=== PATIENT | female | born 1975 | race Caucasian/White ===

== ENCOUNTER 2018-03-16 14:35 | Emergency (ER) | payer OTHER, MEDICAID, SELFPAY ==
--- NOTE | 2018-03-16 14:43 | ED.SYNCOPE ---
HPI - Syncope <PHILLY Holden - Last Filed: 03/16/18 22:18> General Chief Complaint: Dizziness Stated Complaint: passed out twice Time Seen by Provider: 03/16/18 14:42 Source: patient Mode of arrival: ambulatory Limitations: no limitations History of Present Illness HPI narrative: 42-year-old female here for complaint of having a syncopal episode earlier today and pre syncopal episode earlier today as well. She states her eye this morning about 4 o'clock she had some lower abdominal pain bilaterally and she stated she went to the restroom to use the toilet. While she was sitting on the toilet she began to feel lightheaded she stood up and felt like she blacked out for a short. Approximately 15 sec. She states she hit the front side of her forehead. She reports that she also had a headache during that timeframe. She denies any chest pain or shortness of breath. No fevers no chills. She is currently awaiting surgery to fix a hernia repair that has mesh next month. She denies any vaginal discharge or bleeding. No urinary symptoms. Last bowel movement was yesterday and was unremarkable. Related Data Home Medications Medication Instructions Recorded Confirmed No Known Home Medications 03/16/18 03/16/18 Allergies Allergy/AdvReac Type Severity Reaction Status Date / Time chlorhexidine [CHLORHEXIDINE] Allergy Severe blisters Verified 03/16/18 14:51 Review of Systems <PHILLY Holden - Last Filed: 03/16/18 22:18> Constitutional Denies chills, Denies fatigue, Denies fever(s), Denies lethargy and Denies weakness Eyes Denies change in vision, Denies eye discharge, Denies irritation and Denies loss of vision ENT Ears, Nose, Mouth, and Throat: Denies change in voice, Denies neck pain and Denies sore throat Cardiovascular Reports syncope, Reports lightheadedness, Denies dyspnea and Denies dyspnea on exertion Respiratory Denies cough, Denies dyspnea, Denies dyspnea on exertion and Denies wheezing Gastrointestinal Gastrointestinal: Reports abdominal pain Genitourinary Denies hematuria, Denies flank pain, Denies urinary incontinence and Denies urinary urgency Musculoskeletal Denies neck pain Integumentary/Breasts Denies pruritus, Denies erythema, Denies rash and Denies wounds Neurologic Denies confusion, Reports syncope, Denies loss of vision and Denies weakness Psychiatric Denies anxiety, Denies confusion, Denies depression, Denies homicidal ideation and Denies suicidal ideation Endocrine Denies fatigue and Denies flushing Hematologic/Lymphatic Denies easy bruising Allergic/Immunologic Denies wheezing Exam <PHILLY Holden - Last Filed: 03/16/18 22:18> Initial Vital Signs Initial Vital Signs: Vital Signs Temperature 97.6 F 03/16/18 14:45 Pulse Rate 90 03/16/18 14:45 Respiratory Rate 16 03/16/18 14:45 Blood Pressure 126/92 H 03/16/18 14:45 Pulse Oximetry 97 03/16/18 14:45 Const General: cooperative and well developed Nutritional Appearance: well nourished Orientation: alert, awake, oriented x3 and not confused HENKS Head: normal to inspection, normocephalic, atraumatic, No Cai's sign, No contusion, No hematoma, No laceration, No palpable skull fracture, No raccoon eyes and No scalp lesion Nose: external nose normal Mouth: oral mucosae normal, oropharynx normal and moist mucous membranes Eyes Conjunctivae: conjunctivae normal Sclera: sclerae normal Pupils: PERRL EOM: EOM intact bilaterally Neck Neck: normal visual inspection, trachea midline, No lymphadenopathy, No midline deformity and No JVD Lymphatic: No lymphedema Chest Chest: normal inspection of the chest Resp Effort & Inspection: normal respiratory effort, able to speak in complete sentences, no respiratory distress and no use of accessory muscles Auscultation: clear to auscultation bilaterally, no rales, no rhonchi and no wheezes Cardio Rate: regular rate Rhythm: regular rhythm Heart Sounds: no click, no gallops, no murmurs and no rubs Pulses: normal peripheral pulses GI Inspection: non-distended Palpation: soft, no hepatosplenomegaly, No guarding, No mass, No pulsatile mass and tender (Tenderness to the umbilicus area) Auscultation: normal bowel sounds General: No CVA tenderness Neuro General: alert, oriented x3, gait normal and no focal motor deficits Speech: speech normal Extrem General: full ROM, no clubbing, cyanosis or edema, no pedal edema and no calf tenderness <Shree Oglesby DO - Last Filed: 03/17/18 07:29> Initial Vital Signs Initial Vital Signs: Vital Signs Temperature 97.6 F 03/16/18 14:45 Pulse Rate 90 03/16/18 14:45 Respiratory Rate 16 03/16/18 14:45 Blood Pressure 126/92 H 03/16/18 14:45 Pulse Oximetry 97 03/16/18 14:45 Course <PHILLY Holden - Last Filed: 03/16/18 22:18> Orders Ordered: Discontinued Medications Sodium Chloride (Normal Saline 0.9%) 1,000 mls @ 1,000 mls/hr IV BOLUS ONE Stop: 03/16/18 15:46 Last Infusion: 03/16/18 16:17 Dose: 0 mls/hr Admin: 03/16/18 14:55 Dose: 1,000 mls/hr Ketorolac Tromethamine (Toradol) 30 mg IV NOW ONE Stop: 03/16/18 19:37 Last Admin: 03/16/18 19:35 Dose: 30 mg Vital Signs - 8 hr 03/16/18 14:45 03/16/18 16:34 03/16/18 17:32 Temperature 97.6 F Pulse Rate 90 76 73 Respiratory Rate 16 14 16 Blood Pressure 126/92 H Blood Pressure [Left Arm] 111/81 H 132/86 H Pulse Oximetry 97 97 100 03/16/18 19:59 Temperature Pulse Rate 79 Respiratory Rate 15 Blood Pressure 128/89 H Blood Pressure [Left Arm] Pulse Oximetry 100 <Shree Oglesby DO - Last Filed: 03/17/18 07:29> Orders Ordered: Discontinued Medications Sodium Chloride (Normal Saline 0.9%) 1,000 mls @ 1,000 mls/hr IV BOLUS ONE Stop: 03/16/18 15:46 Last Infusion: 03/16/18 16:17 Dose: 0 mls/hr Admin: 03/16/18 14:55 Dose: 1,000 mls/hr Ketorolac Tromethamine (Toradol) 30 mg IV NOW ONE Stop: 03/16/18 19:37 Last Admin: 03/16/18 19:35 Dose: 30 mg Vital Signs - 8 hr 03/16/18 14:45 03/16/18 16:34 03/16/18 17:32 Temperature 97.6 F Pulse Rate 90 76 73 Respiratory Rate 16 14 16 Blood Pressure 126/92 H Blood Pressure [Left Arm] 111/81 H 132/86 H Pulse Oximetry 97 97 100 03/16/18 19:59 Temperature Pulse Rate 79 Respiratory Rate 15 Blood Pressure 128/89 H Blood Pressure [Left Arm] Pulse Oximetry 100 MDM - Syncope <Acosta PHILLY Darden - Last Filed: 03/16/18 22:18> Lab Data Result diagrams: 03/16/18 14:50 03/16/18 14:50 Lab Results 03/16/18 03/16/18 03/16/18 Range/Units 14:50 14:50 15:50 WBC 7.9 (4.5-11.0) X10^3/uL RBC 4.96 (4.0-5.2) X10^6/uL Hgb 14.0 (12.0-16.0) g/dL Hct 40.5 (36-46) % MCV 81.7 (80-100) fL MCH 28.3 (26-34) PG MCHC 34.7 (30-36) % RDW 13.6 (11.6-14.8) % Plt Count 265 (150-400) X10^3/uL Neut % (Auto) 54.7 (50-75) % Lymph % (Auto) 36.9 (25-40) % Harris % (Auto) 5.9 (3-14) % Eos % (Auto) 1.4 L (2-4) % Baso % (Auto) 1.1 (0-2) % Neut # (Auto) 4300 (4326-3765) /uL Sodium 140 (137-145) mmol/L Potassium 3.8 (3.4-5.1) mmol/L Chloride 102 (98-107) mmol/L Carbon Dioxide 29 (22-32) mmol/L BUN 9 (7-17) mg/dL Creatinine 0.70 (0.52-1.04) mg/dL Estimated GFR > 60.0 (>60) mL/min BUN/Creatinine Ratio 12.9 (6-22) Glucose 86 (70-100) mg/dL Calcium 9.4 (8.4-10.2) mg/dL Magnesium 2.0 (1.6-2.3) mg/dL Total Bilirubin 0.4 (0.2-1.3) mg/dL AST 17 (14-36) IU/L ALT 31 (9-52) IU/L Alkaline Phosphatase 88 (38-126) U/L Total Creatine Kinase 41 (30-135) U/L Troponin I < 0.012 (0.01-0.034) ng/mL Total Protein 7.3 (6.3-8.2) g/dL Albumin 4.3 (3.5-5.0) g/dL Globulin 3.0 (1.7-4.1) g/dL Albumin/Globulin Ratio 1.4 (1.0-2.8) Urine RBC 1-5/hpf (0-5/HPF) Urine WBC 0-1/hpf (0-5/HPF) Ur Squamous Epith Cells 0-1 /hpf Urine Bacteria Occasional (0-1) (None) Urine Mucus 1+ H (Negative) Ur Culture Indicated? Not Reportable Micro UA Comment Not Reportable Imaging Data CT scan - head: Radiologist's impression: [address] [address] [address] Scan Report Signed Patient: Dino Ward MR#: [id number] : 1975 Acct:[id number] Age/Sex: 42 / F Date of Service: 03/16/18 Loc: ED Accession Number: [id number] Procedure: CT head/brain wo con Ordering Provider: Acosta Darden PROCEDURE: CT HEAD/BRAIN WO CON INDICATIONS: Syncopal events TECHNIQUE: Noncontrast 4.5 mm thick angled axial sections acquired from the foramen magnum to the vertex, with coronal and sagittal reformats. For radiation dose reduction, the following was used: automated exposure control, adjustment of mA and/or kV according to patient size. COMPARISON: None. FINDINGS: Image quality: Excellent. CSF spaces: Basal cisterns are patent. No extra-axial fluid collections. Ventricles are normal in size and shape. Brain: No midline shift. No intracranial masses or hemorrhage. There is focal low density seen within the central emilio. Boggs-white matter interface is normal. Skull and face: Calvarium and visualized facial bones are intact, without suspicious lesions. Sinuses: Visualized sinuses and mastoids are clear. IMPRESSION: Focal low-density seen within the central emilio, which is felt most likely to be related to streak artifact. However, if there are symptoms referrable to this area, please consider a dedicated brain MRI (assuming that there is no contraindication). Dictated by: Ricci Murray M.D. on 03/16/2018 at 14:14 Approved by: Ricci Murray M.D. on 03/16/2018 at 14:18 CT scan - abdomen: Radiologist's impression: PROCEDURE: CT ABDOMEN PELVIS W CON INDICATIONS: Sharp bilateral lower abdominal pain TECHNIQUE: After the administration of intravenous contrast, 5 mm thick sections acquired from the diaphragm to the symphysis. 5 mm coronal and sagittal reformats were acquired. For radiation dose reduction, the following was used: automated exposure control, adjustment of mA and/or kV according to patient size. COMPARISON: [facility], CT, CT HEAD/BRAIN WO CON, 03/16/2018, 14:47. [facility], CT, ABDOMEN/PELVIS WITH CONTRAST, 06/13/2017, 12:45. [facility], CT, ABDOMEN/PELVIS WITH CONTRAST, 03/29/2017, 19:57. FINDINGS: Image quality: Excellent. ABDOMEN: Lung bases: Lingular atelectasis. Heart size is normal. Solid organs: Liver is normal in size and enhancement. Gallbladder is surgically absent.. Biliary system is non dilated. Pancreas enhances normally. Spleen is normal in size and enhancement. No adrenal nodules. Kidneys demonstrate normal size and enhancement, without hydronephrosis. Peritoneum and bowel: Bowel loops demonstrate normal wall thickness and caliber. No free fluid or air. Nodes and vessels: No retroperitoneal or mesenteric adenopathy by size criteria. Aorta and inferior vena cava are normal in size. Miscellaneous: Post surgical changes of ventral abdominal hernia repair. There is a possible 1.0 cm defect within the hernia repair mesh, which is new from exam of 06/13/17. PELVIS: Genitourinary: Bladder wall thickness is normal. Miscellaneous: No inguinal hernias or adenopathy. Bilateral ovarian follicles noted, largest measuring up to 1.9 cm in size. Bones: No suspicious bony lesions. No vertebral body compression fractures. IMPRESSION: #1. No acute infectious process within the abdomen and pelvis. #2. Postsurgical changes of prior ventral abdominal hernia repair with possible 1.0 cm defect within the hernia repair mesh, new from comparison exam of 06/13/17. Dictated by: Alton Rivera M.D. on 03/16/2018 at 16:26 Approved by: Alton Rivera M.D. on 03/16/2018 at 16:38 Chest x-ray: Radiologist's impression: [address] [address] XRay Report Signed Patient: Dino Ward MR#: [id number] : 1975 Acct:[id number] Age/Sex: 42 / F Date of Service: 03/16/18 Loc: ED Accession Number: [id number] Procedure: XR chest 1V Ordering Provider: Acosta Darden PROCEDURE: XR CHEST 1V INDICATIONS: Syncopal events TECHNIQUE: One view of the chest was acquired. COMPARISON: None. FINDINGS: Surgical changes and devices: Surgical clips right upper quadrant. Remote resection distal right clavicle. Lungs and pleura: No pleural effusions or pneumothorax. Lungs are clear. Mediastinum: Mediastinal contours appear normal. Heart size is normal. Bones and chest wall: No suspicious bony lesions. Overlying soft tissues appear unremarkable. IMPRESSION: No acute cardiopulmonary abnormality Dictated by: Mauricio Chase M.D. on 03/16/2018 at 15:08 Approved by: Mauricio Chase M.D. on 03/16/2018 at 15:09 MRI brain : Radiologist's impression: [address] [address] Magnetic Resonance Report Signed Patient: Dino Ward MR#: [id number] : 1975 Acct:[id number] Age/Sex: 42 / F Date of Service: 03/16/18 Loc: ED Accession Number: [id number] Procedure: MR head/brain wo con Ordering Provider: Acosta Darden PROCEDURE: MR HEAD/BRAIN WO CON INDICATIONS: History of syncopal events with nonspecific low density in the emilio on CT. TECHNIQUE: Noncontrast axial T1 spin echo, axial T2 fast spin echo, sagittal and axial FLAIR, coronal T2 fast spin echo, axial gradient echo, axial diffusion and ADC through the brain. COMPARISON: [facility], CT, CT HEAD/BRAIN WO CON, 03/16/2018, 14:47. FINDINGS: Image quality: Excellent. CSF Spaces: Basal cisterns are patent. No extra-axial fluid collections. Ventricles are normal in size and shape. Brain: No intracranial hemorrhage, mass, or mass effect. Boggs/white matter interface is normal. Brainstem appears normal. Specifically, no focal lesions demonstrated in the emilio. Diffusion-weighted images demonstrate no acute infarcts. Normal intravascular flow voids are present. Skull and face: Calvarium has normal marrow signal. Orbits appear normal. Sinuses: Sinuses and mastoids are clear. IMPRESSION: 1. No acute intracranial abnormality. 2. Specifically, no evidence of infarct or abnormal focal lesions demonstrated in the emilio. Findings on CT were likely artifactual. Dictated by: Korey Macdonald M.D. on 03/16/2018 at 18:32 Approved by: Korey Macdonald M.D. on 03/16/2018 at 18:35 ECG Data Interpretation: EKG shows normal sinus rhythm with no ST elevation or depression. No ectopy. Ventricular rate of 82. Pr interval 151. QRS duration of 84. QTC 421 MDM Narrative Medical decision making narrative: CBC and Chem panel were obtained were unremarkable. Cardiac enzymes were obtained were negative. EKG shows normal sinus rhythm with no ST elevation or depression. Chest x-ray was obtained was negative. CT of the head was obtained and shows possible hypodensity to the emilio area with MRI requested. MRI was ordered and was negative for any acute findings. Hypodensity to the emilio area on CT was an artifact. CT of the abdomen was obtained was negative for any acute findings with exception of a possible mesh defect of 1 cm in size. Signs and symptoms presents as vasovagal response due to abdominal pain most likely secondary to the ventral hernia issues that she has had chronically. She is referred to her surgeon for further evaluation. Follow up with primary care provider next week for re-evaluation. For any worsening <Shree Oglesby, DO - Last Filed: 03/17/18 07:29> Lab Data Lab Results 03/16/18 03/16/18 03/16/18 Range/Units 14:50 14:50 15:50 WBC 7.9 (4.5-11.0) X10^3/uL RBC 4.96 (4.0-5.2) X10^6/uL Hgb 14.0 (12.0-16.0) g/dL Hct 40.5 (36-46) % MCV 81.7 (80-100) fL MCH 28.3 (26-34) PG MCHC 34.7 (30-36) % RDW 13.6 (11.6-14.8) % Plt Count 265 (150-400) X10^3/uL Neut % (Auto) 54.7 (50-75) % Lymph % (Auto) 36.9 (25-40) % Harris % (Auto) 5.9 (3-14) % Eos % (Auto) 1.4 L (2-4) % Baso % (Auto) 1.1 (0-2) % Neut # (Auto) 4300 (3742-3482) /uL Sodium 140 (137-145) mmol/L Potassium 3.8 (3.4-5.1) mmol/L Chloride 102 (98-107) mmol/L Carbon Dioxide 29 (22-32) mmol/L BUN 9 (7-17) mg/dL Creatinine 0.70 (0.52-1.04) mg/dL Estimated GFR > 60.0 (>60) mL/min BUN/Creatinine Ratio 12.9 (6-22) Glucose 86 (70-100) mg/dL Calcium 9.4 (8.4-10.2) mg/dL Magnesium 2.0 (1.6-2.3) mg/dL Total Bilirubin 0.4 (0.2-1.3) mg/dL AST 17 (14-36) IU/L ALT 31 (9-52) IU/L Alkaline Phosphatase 88 (38-126) U/L Total Creatine Kinase 41 (30-135) U/L Troponin I < 0.012 (0.01-0.034) ng/mL Total Protein 7.3 (6.3-8.2) g/dL Albumin 4.3 (3.5-5.0) g/dL Globulin 3.0 (1.7-4.1) g/dL Albumin/Globulin Ratio 1.4 (1.0-2.8) Urine RBC 1-5/hpf (0-5/HPF) Urine WBC 0-1/hpf (0-5/HPF) Ur Squamous Epith Cells 0-1 /hpf Urine Bacteria Occasional (0-1) (None) Urine Mucus 1+ H (Negative) Ur Culture Indicated? Not Reportable Micro UA Comment Not Reportable Discharge Plan Departure Patient Disposition: Home Clinical Impression: Syncope Discharge Date/Time: 03/16/18 20:03 Interventions: ED Discharge Assessment Last Done: 03/16/18 19:59 Instructions: DI for Syncope in Adults (Fainting) Activity Restrictions/Additional Instructions: Laboratory results and imaging today were unremarkable. Signs and symptoms presents as syncopal episode due to vasovagal response most likely secondary to the abdominal pain which may be coming due to chronic ventral hernia issues. Follow up with surgery as scheduled. Follow up with her primary care provider next few days for re-evaluation. For any worsening symptoms return to the emergency room. Prescriptions: No Action No Known Home Medications RF: 0 Referrals: Isabel Walton MD [Primary Care Provider] - <Shree Oglesby DO - Last Filed: 03/17/18 07:29> Cosign ED Attending Cece Attestation: I was available for consultation during this patient's emergency department encounter
[2018-03-16 14:45] VITALS: BP 126/92; PULSE 90; RESP 16; TEMP 36.4; O2SAT 97
--- NOTE | 2018-03-16 14:48 | DI.RAD.S_ITS ---
PROCEDURE: XR CHEST 1V INDICATIONS: Syncopal events TECHNIQUE: One view of the chest was acquired. COMPARISON: None. FINDINGS: Surgical changes and devices: Surgical clips right upper quadrant. Remote resection distal right clavicle. Lungs and pleura: No pleural effusions or pneumothorax. Lungs are clear. Mediastinum: Mediastinal contours appear normal. Heart size is normal. Bones and chest wall: No suspicious bony lesions. Overlying soft tissues appear unremarkable. IMPRESSION: No acute cardiopulmonary abnormality Dictated by: Mauricio Chase M.D. on 03/16/2018 at 15:08 Approved by: Mauricio Chase M.D. on 03/16/2018 at 15:09
--- NOTE | 2018-03-16 14:53 | DI.CT.S_ITS ---
PROCEDURE: CT HEAD/BRAIN WO CON INDICATIONS: Syncopal events TECHNIQUE: Noncontrast 4.5 mm thick angled axial sections acquired from the foramen magnum to the vertex, with coronal and sagittal reformats. For radiation dose reduction, the following was used: automated exposure control, adjustment of mA and/or kV according to patient size. COMPARISON: None. FINDINGS: Image quality: Excellent. CSF spaces: Basal cisterns are patent. No extra-axial fluid collections. Ventricles are normal in size and shape. Brain: No midline shift. No intracranial masses or hemorrhage. There is focal low density seen within the central emilio. Obggs-white matter interface is normal. Skull and face: Calvarium and visualized facial bones are intact, without suspicious lesions. Sinuses: Visualized sinuses and mastoids are clear. IMPRESSION: Focal low-density seen within the central emilio, which is felt most likely to be related to streak artifact. However, if there are symptoms referrable to this area, please consider a dedicated brain MRI (assuming that there is no contraindication). Dictated by: Ricci Murray M.D. on 03/16/2018 at 14:14 Approved by: Ricci Murray M.D. on 03/16/2018 at 14:18
[2018-03-16] MEDS: SODIUM CHLORIDE 0.9% 1,000 ML 1000 ML IV (14:55)
[2018-03-16 15:01] LABS: Add Manual Diff / Slide Review NO; Basophils Percent Auto 1.1 % (0-2); Eosinophils Percent Auto 1.4 % (2-4); Hematocrit 40.5 % (36-46); Lymphocytes Percent Auto 36.9 % (25-40); Mean Corpuscular HGB Conc 34.7 % (30-36); Mean Corpuscular Hemoglobin 28.3 PG (26-34); Mean Corpuscular Volume 81.7 fL (80-100); Monocytes Percent Auto 5.9 % (3-14); Neutrophils Absolute Auto 4300 /uL (3000-5900); Neutrophils Percent Auto 54.7 % (50-75); Platelet Count 265 X10^3/uL (150-400); Red Blood Cell Count 4.96 X10^6/uL (4.0-5.2); Red Cell Distribution Width 13.6 % (11.6-14.8); White Blood Cell Count 7.9 X10^3/uL (4.5-11.0)
[2018-03-16 15:13] LABS: Alanine Aminotransferase 31 IU/L (9-52); Albumin 4.3 g/dL (3.5-5.0); Albumin Globulin Ratio 1.4 (1.0-2.8); Alkaline Phosphatase 88 U/L (38-126); Aspartate Aminotransferase 17 IU/L (14-36); BUN Creatinine Ratio 12.9 (6-22); Bilirubin Total 0.4 mg/dL (0.2-1.3); Blood Urea Nitrogen 9 mg/dL (7-17); Calcium 9.4 mg/dL (8.4-10.2); Carbon Dioxide 29 mmol/L (22-32); Chloride 102 mmol/L (98-107); Creatine Kinase 41 U/L (30-135); Estimated Glomerular Filt Rate > 60.0 mL/min (>60); Glucose 86 mg/dL (70-100); HEMOLYSIS < 15 (0-50); Potassium 3.8 mmol/L (3.4-5.1); Sodium 140 mmol/L (137-145); Total Protein 7.3 g/dL (6.3-8.2)
[2018-03-16 15:25] LABS: Troponin I < 0.012 ng/mL (0.01-0.034)
--- NOTE | 2018-03-16 15:33 | DI.CT.S_ITS ---
PROCEDURE: CT ABDOMEN PELVIS W CON INDICATIONS: Sharp bilateral lower abdominal pain TECHNIQUE: After the administration of intravenous contrast, 5 mm thick sections acquired from the diaphragm to the symphysis. 5 mm coronal and sagittal reformats were acquired. For radiation dose reduction, the following was used: automated exposure control, adjustment of mA and/or kV according to patient size. COMPARISON: [facility], CT, CT HEAD/BRAIN WO CON, 03/16/2018, 14:47. [facility], CT, ABDOMEN/PELVIS WITH CONTRAST, 06/13/2017, 12:45. [facility], CT, ABDOMEN/PELVIS WITH CONTRAST, 03/29/2017, 19:57. FINDINGS: Image quality: Excellent. ABDOMEN: Lung bases: Lingular atelectasis. Heart size is normal. Solid organs: Liver is normal in size and enhancement. Gallbladder is surgically absent.. Biliary system is non dilated. Pancreas enhances normally. Spleen is normal in size and enhancement. No adrenal nodules. Kidneys demonstrate normal size and enhancement, without hydronephrosis. Peritoneum and bowel: Bowel loops demonstrate normal wall thickness and caliber. No free fluid or air. Nodes and vessels: No retroperitoneal or mesenteric adenopathy by size criteria. Aorta and inferior vena cava are normal in size. Miscellaneous: Post surgical changes of ventral abdominal hernia repair. There is a possible 1.0 cm defect within the hernia repair mesh, which is new from exam of 06/13/17. PELVIS: Genitourinary: Bladder wall thickness is normal. Miscellaneous: No inguinal hernias or adenopathy. Bilateral ovarian follicles noted, largest measuring up to 1.9 cm in size. Bones: No suspicious bony lesions. No vertebral body compression fractures. IMPRESSION: #1. No acute infectious process within the abdomen and pelvis. #2. Postsurgical changes of prior ventral abdominal hernia repair with possible 1.0 cm defect within the hernia repair mesh, new from comparison exam of 06/13/17. Dictated by: Alton Rivera M.D. on 03/16/2018 at 16:26 Approved by: Alton Rivera M.D. on 03/16/2018 at 16:38
--- NOTE | 2018-03-16 15:53 | PC.NURSE ---
pt c/o synople episode x2 one yesterday and one this am. states had severe abd pain yesterday when she had episode, she attributed to a known hernia pain.
[2018-03-16 16:22] LABS: Bacteria Urine Occasional (0-1); Mucus Urine 1+ (Negative); RBC Urine 1-5/HPF (0-5/HPF); Squamous Epithelial Cell Urine 0-1 /HPF; WBC Urine 0-1/HPF (0-5/HPF)
[2018-03-16 16:34] VITALS: BP 111/81; PULSE 76; RESP 14; O2SAT 97
--- NOTE | 2018-03-16 16:50 | DI.MRI.S_ITS ---
PROCEDURE: MR HEAD/BRAIN WO CON INDICATIONS: History of syncopal events with nonspecific low density in the emilio on CT. TECHNIQUE: Noncontrast axial T1 spin echo, axial T2 fast spin echo, sagittal and axial FLAIR, coronal T2 fast spin echo, axial gradient echo, axial diffusion and ADC through the brain. COMPARISON: [facility], CT, CT HEAD/BRAIN WO CON, 03/16/2018, 14:47. FINDINGS: Image quality: Excellent. CSF Spaces: Basal cisterns are patent. No extra-axial fluid collections. Ventricles are normal in size and shape. Brain: No intracranial hemorrhage, mass, or mass effect. Boggs/white matter interface is normal. Brainstem appears normal. Specifically, no focal lesions demonstrated in the emilio. Diffusion-weighted images demonstrate no acute infarcts. Normal intravascular flow voids are present. Skull and face: Calvarium has normal marrow signal. Orbits appear normal. Sinuses: Sinuses and mastoids are clear. IMPRESSION: 1. No acute intracranial abnormality. 2. Specifically, no evidence of infarct or abnormal focal lesions demonstrated in the emilio. Findings on CT were likely artifactual. Dictated by: Korey Macdonald M.D. on 03/16/2018 at 18:32 Approved by: Korey Macdonald M.D. on 03/16/2018 at 18:35
[2018-03-16 17:32] VITALS: BP 132/86; PULSE 73; RESP 16; O2SAT 100
[2018-03-16] MEDS: KETOROLAC 60 MG/2 ML VIAL 30 MG IV (19:35)
[2018-03-16 19:59] VITALS: BP 128/89; PULSE 79; RESP 15; O2SAT 100
== END 2018-03-16 20:03 | disposition home or self-care (01) ==
PROVIDERS: Emergency Provider Nurse Practitioner Family; PCP Physical Medicine & Rehabilitation
DX: R55 Syncope and collapse (principal)
CPT/HCPCS: 36591; 70450; 70551; 71045; 74177; 80053; 81003; 81015; 81025; 82550; 82553; 83735; 84484; 85025; 93005; 93010; 96361; 96374; 99283; 99285; J1885; Q9967

== ENCOUNTER → 2018-06-20 09:19 | Outpatient (CLI) | payer OTHER, SELFPAY ==
[2018-06-20 09:51] LABS: Add Manual Diff / Slide Review NO; Basophils Percent Auto 1.3 % (0-2); Eosinophils Percent Auto 2.2 % (2-4); Hematocrit 41.4 % (36-46); Hemoglobin 13.9 g/dL (12.0-16.0); Lymphocytes Percent Auto 33.3 % (25-40); Mean Corpuscular HGB Conc 33.6 % (30-36); Mean Corpuscular Hemoglobin 28.2 PG (26-34); Monocytes Percent Auto 6.3 % (3-14); Neutrophils Absolute Auto 4000 /uL (3000-5900); Neutrophils Percent Auto 56.9 % (50-75); Platelet Count 265 X10^3/uL (150-400); Red Blood Cell Count 4.93 X10^6/uL (4.0-5.2); Red Cell Distribution Width 13.9 % (11.6-14.8); White Blood Cell Count 7.1 X10^3/uL (4.5-11.0)
[2018-06-20 10:13] LABS: Hemoglobin A1C% w Est Avg Glu 5.3 % (4.0-6.0)
[2018-06-20 10:14] LABS: Alanine Aminotransferase 26 IU/L (9-52); Albumin 4.4 g/dL (3.5-5.0); Albumin Globulin Ratio 1.5 (1.0-2.8); Alkaline Phosphatase 81 U/L (38-126); Aspartate Aminotransferase 25 IU/L (14-36); BUN Creatinine Ratio 14.3 (6-22); Bilirubin Total 0.3 mg/dL (0.2-1.3); Blood Urea Nitrogen 10 mg/dL (7-17); C-Reactive Protein Quant 0.6 mg/dL (<1.0); Calcium 9.2 mg/dL (8.4-10.2); Carbon Dioxide 25 mmol/L (22-32); Chloride 105 mmol/L (98-107); Creatine Kinase 47 U/L (30-135); Estimated Glomerular Filt Rate > 60.0 mL/min (>60); Glucose 96 mg/dL (70-100); HEMOLYSIS < 15 (0-50); Potassium 4.3 mmol/L (3.4-5.1); Sodium 143 mmol/L (137-145); Total Protein 7.4 g/dL (6.3-8.2)
[2018-06-20 10:19] LABS: Rheumatoid Factor < 8.6 IU/mL (<12.0)
[2018-06-20 10:34] LABS: Erythrocyte Sedimentation Rate 42 MM/HR (0-20)
[2018-06-22 19:54] LABS: ANA Pattern Homogeneous; ANA Screen, IFA Positive (Negative); ANA Titer 1:40 titer (<1:40)
== END ==
PROVIDERS: PCP Physical Medicine & Rehabilitation; Visit Provider Physical Medicine & Rehabilitation
DX: S33.5XXA Sprain of ligaments of lumbar spine, initial encounter (principal); K42.9 Umbilical hernia without obstruction or gangrene; F33.1 Major depressive disorder, recurrent, moderate
CPT/HCPCS: 36415; 80053; 82550; 83036; 84443; 85025; 85651; 86038; 86140; 86430

== ENCOUNTER → 2018-10-25 09:45 | Outpatient (CLI) | payer OTHER, MEDICAID, SELFPAY ==
--- NOTE | 2018-10-25 | DI.US.S_ITS ---
PROCEDURE: US PERIPH VENOUS UP EXTREM RT INDICATIONS: elevated D dimer R leg swelling TECHNIQUE: Real-time imaging, as well as color and pulse Doppler interrogation, was performed of the right upper extremity deep veins from the inferior neck to the antecubital fossa. COMPARISON: None. FINDINGS: The internal jugular vein, visualized portions of the subclavian vein, axillary, and brachial veins are free of intraluminal thrombus. Where physically possible, the veins are normally compressible. Color and pulse Doppler demonstrate normal intraluminal flow, with expected phasicity and pulsatility. Additional scanning of the cephalic and basilic veins of the superficial system demonstrates normal compressibility, without thrombus. IMPRESSION: Negative for deep venous thrombosis. Dictated by: Ricci Murray M.D. on 10/25/2018 at 11:54 Approved by: Ricci Murray M.D. on 10/25/2018 at 11:56
--- NOTE | 2018-10-25 | DI.US.S_ITS ---
PROCEDURE: US PERIPH VENOUS LOW EXTREM BI INDICATIONS: ELEVATED D-DIMER/AND RIGHT LEG SWELLING TECHNIQUE: Real-time imaging, as well as color and pulse Doppler interrogation, were performed of the deep veins of both legs from the inguinal ligament to the popliteal fossa. COMPARISON: None. FINDINGS: Right: The common femoral, femoral and popliteal veins are normally compressible, and free of intraluminal thrombus. Color and pulse Doppler demonstrate normal phasic intravascular flow. There is normal augmentation response to distal compression maneuver. Left: The common femoral, femoral and popliteal veins are normally compressible, and free of intraluminal thrombus. Color and pulse Doppler demonstrate normal phasic intravascular flow. There is normal augmentation response to distal compression maneuver. IMPRESSION: No evidence of deep venous thrombosis. Dictated by: Dino Niño M.D. on 10/25/2018 at 12:16 Approved by: Dino Niño M.D. on 10/25/2018 at 12:17
== END ==
PROVIDERS: PCP Internal Medicine; Visit Provider Internal Medicine
DX: R79.89 Other specified abnormal findings of blood chemistry (principal); M79.604 Pain in right leg; M79.89 Other specified soft tissue disorders
CPT/HCPCS: 93970; 93971

== ENCOUNTER → 2021-10-20 10:22 | Outpatient (CLI) | payer OTHER, SELFPAY ==
[2021-10-20 11:22] LABS: COVID19 -Nasal RAPID Negative (Negative)
== END ==
PROVIDERS: PCP Family Medicine; Visit Provider Physical Medicine & Rehabilitation
DX: Z20.822 Contact with and (suspected) exposure to COVID-19 (principal)
CPT/HCPCS: 87635; C9803

== ENCOUNTER 2021-10-20 10:46 | Emergency (ER) | payer OTHER, MEDICAID, SELFPAY ==
[2021-10-20 11:00] VITALS: BP 194/114; PULSE 118; RESP 24; TEMP 36.9; O2SAT 97; BMI 36.5
--- NOTE | 2021-10-20 11:05 | DI.RAD.S_ITS ---
PROCEDURE: XR SHOULDER LT MIN 2V INDICATIONS: pain TECHNIQUE: 2 views of the shoulder were acquired. COMPARISON: None. FINDINGS: Bones: No fractures or dislocations. There is minimal acromioclavicular joint degeneration. No suspicious bony lesions. Visualized ribs appear intact. Soft tissues: There are indistinct calcifications along the rectal course of the distal superior cuff. IMPRESSION: 1. No fracture or dislocation. 2. Indistinct calcifications along the expected course of the superior cuff distally suggestive of calcific tendinitis. Dictated by: Korey Macdonald M.D. on 10/20/2021 at 11:56 Approved by: Korey Macdonald M.D. on 10/20/2021 at 11:59
[2021-10-20] MEDS: KETOROLAC 30 MG/ML VIAL 15 MG IM (12:45)
[2021-10-20] MEDS: CYCLOBENZAPRINE 10 MG TABLET PO (12:45)
--- NOTE | 2021-10-20 13:22 | DI.MRI.S_ITS ---
PROCEDURE: MR SHOULDER LT WO CON INDICATIONS: LEFT Sholder pain TECHNIQUE: Noncontrast oblique coronal T2 fast spin echo with fat saturation, oblique sagittal T1 spin echo and T2 fast spin echo with fat saturation, axial T1 spin echo and T2 fast spin echo with fat saturation through the shoulder. COMPARISON: [facility], CR, XR SHOULDER LT MIN 2V, 10/20/2021, 11:17. FINDINGS: Image quality: Excellent. Rotator cuff: Tendinosis and low-grade articular and bursal surface partial thickness tear involving distal supraspinatus at its insertion on the humeral head is seen extending to musculotendinous junction. Small calcification is seen within anterior fibers of distal supraspinatus tendon at its insertion on the humeral head is seen suggestive of calcific tendinitis. Distal infraspinatus is intact. Tendinosis and low to moderate grade partial-thickness tear involving mid to inferior fibers of distal subscapularis is seen extending to musculotendinous junction. No full-thickness rotator cuff tendon rupture. Sagittal images demonstrate mild supraspinatus muscle atrophy. Bones and bursae: No bone marrow contusions or fractures. Mild to moderate acromioclavicular joint osteoarthritic changes are seen. Mild glenohumeral joint osteoarthritic changes also noted. The acromion demonstrates conventional anatomy, without an os acromiale. Moderate amount of subcoracoid bursal fluid is seen. Small to moderate amount of subacromial subdeltoid bursal fluid is also noted. Capsule and soft tissues: Subtle signal abnormality and contour irregularity involving superior anterior labrum at 12 to 1 o'clock position is seen. The long head of the biceps tendon demonstrates normal location and morphology. The rotator interval appears normal, without fibrosis. The coracohumeral ligament is normal in thickness. IMPRESSION: 1. No acute fracture or dislocation. Mild to moderate acromioclavicular joint and glenohumeral joint osteoarthritis. Small to moderate amount of subacromial subdeltoid bursal fluid than subcoracoid bursal fluid. 2. Tendinosis and low-grade articular and bursal surface partial thickness tear involving distal supraspinatus extending to musculotendinous junction. Suggestion of calcific tendinitis involving anterior fibers of distal supraspinatus with small calcification. Tendinosis and low to moderate grade partial-thickness tear involving mid to inferior fibers of distal subscapularis extending to musculotendinous junction. No full-thickness rotator cuff tendon rupture. Very mild supraspinatus muscle atrophy. 3. Finding is suggestive of subtle superior anterior labral tear at 12 to 1 o'clock position. Dictated by: Lee Champagne M.D. on 10/20/2021 at 15:51 Approved by: Lee Champagne M.D. on 10/20/2021 at 16:05
--- NOTE | 2021-10-20 14:55 | ED_ITS ---
HPI - Extremity Problem <Lavern Burgess PA-C - Last Filed: 10/20/21 18:33> General Chief complaint: Extremity Problem,Nontraumatic Stated complaint: Left shoulder pain Time Seen by Provider: 10/20/21 12:06 Source: patient Mode of arrival: Family Vehicle History of Present Illness HPI Narrative: 45-year-old female with a history of lumbar disc herniation presents to the ED with 2 days of left-sided shoulder pain. Patient states she has a history of calcific tendinitis which has caused her problems in the past, however her shoulder has been pain free for a while until yesterday. Patient states she was trying to catch herself falling from a mechanical fall and fell on an outstretched hand, stretch backwards, following which her left shoulder started hurting, and as of this morning patient is unable to abduct or raise her left arm due to the pain. Patient denies numbness, tingling, weakness. Patient is holding her arm close to her body. Patient denies neck pain, back pain. Related Data Home Medications Medication Instructions Recorded Confirmed albuterol sulfate 90 mcg/actuation 2 inh INHALATION Q4-6H PRN 04/15/21 10/07/21 breath activated powder inhaler gabapentin 800 mg tablet 800 mg PO TID 04/15/21 10/07/21 buspirone 30 mg tablet 30 mg PO BID tab 10/07/21 10/07/21 lorazepam 0.5 mg tablet 0.5 mg PO BID PRN tab 10/07/21 10/07/21 oxycodone 5 mg tablet 5 mg PO DAILY PRN tab 10/07/21 10/07/21 paroxetine HCl 30 mg tablet tab PO 10/07/21 10/07/21 Previous Rx's Medication Instructions Recorded celecoxib 200 mg capsule (Celebrex) 200 mg PO DAILY #30 cap 04/15/21 diazepam 10 mg tablet (Valium) 10 mg PO .COMPLEX PRN #10 tab MDD 10/20/21 3 tabs Allergies Allergy/AdvReac Type Severity Reaction Status Date / Time chlorhexidine [CHLORHEXIDINE] Allergy Severe blisters Verified 10/20/21 10:59 Review of Systems <Lavern Burgess PA-C - Last Filed: 10/20/21 18:33> Review of Systems ROS Unobtainable: All systems reviewed & are unremarkable except as noted in HPI and below Constitutional Constitutional: Denies chills, Denies fatigue, Denies fever(s), Denies frequent falls, Denies lethargy and Denies weakness Eyes Eyes: Denies change in vision, Denies eye discharge, Denies irritation and Denies loss of vision ENT Ears, Nose, Mouth, and Throat: Denies change in voice, Denies dizziness, Denies neck pain, Denies sore throat and Denies throat swelling Cardiovascular Cardiovascular: Denies chest pain, Denies irregular heart rhythm, Denies lightheadedness, Denies palpitations, Denies dyspnea, Denies dyspnea on exertion and Denies orthopnea Respiratory Respiratory: Denies cough, Denies dyspnea, Denies dyspnea on exertion and Denies wheezing Gastrointestinal Gastrointestinal: Denies abdominal pain, Denies change in bowel habits, Denies diarrhea, Denies nausea and Denies vomiting Genitourinary Genitourinary: Denies hematuria, Denies flank pain, Denies urinary incontinence and Denies urinary urgency Musculoskeletal Musculoskeletal: Denies back pain, Denies muscle weakness, Denies neck pain, Denies numbness and Denies tingling Comments: Left shoulder pain, unable to abduct or raise arm Integumentary/Breasts Skin/Breast: Denies pruritus, Denies erythema, Denies rash and Denies wounds Neurologic Neurologic: Denies behavioral changes, Denies confusion, Denies dizziness, Denies frequent falls, Denies loss of vision, Denies numbness, Denies tingling and Denies weakness Psychiatric Psychiatric: Denies anxiety, Denies behavioral changes, Denies confusion, Denies depression, Denies homicidal ideation and Denies suicidal ideation Endocrine Endocrine: Denies fatigue, Denies flushing and Denies palpitations Hematologic/Lymphatic Hematologic/Lymphatic: Denies easy bruising Allergic/Immunologic Allergic/Immunologic: Denies urticaria, Denies throat swelling and Denies wheezing Patient History <Lavern Burgess PA-C - Last Filed: 10/20/21 18:33> Medical History Abdominal pain Facet arthropathy, lumbar Herniated nucleus pulposus, lumbar Lumbar radiculopathy Recurrent ventral hernia Surgical History H/O breast surgery H/O hernia repair H/O rhinoplasty History of cholecystectomy Hx of appendectomy Social History Smoking Status: Current some day smoker Smoking Status: Current some day smoker tobacco type: cigarettes alcohol intake frequency: 0-2 drinks per day Substance Use Type: marijuana Exam <Lavern Burgess PA-C - Last Filed: 10/20/21 18:33> Initial Vital Signs Initial Vital Signs: Vital Signs Temperature 98.5 F 10/20/21 11:00 Pulse Rate 118 H 10/20/21 11:00 Respiratory Rate 24 10/20/21 11:00 Blood Pressure 194/114 H 10/20/21 11:00 Pulse Oximetry 97 10/20/21 11:00 Const General: cooperative, healthy appearing and comfortable HENMT Head: normal to inspection Eyes General: appearance normal, both eyes and all related structures Neck Neck: normal visual inspection Chest Chest: normal inspection of the chest Resp Auscultation: clear to auscultation bilaterally Cardio Rate: regular rate Rhythm: regular rhythm Back/Spine/Pelvis Back: normal to inspection Skin General: no rashes or lesions noted Neuro General: patient alert, patient awake and patient oriented x3 Extrem Other: Left shoulder tender to palpation on the anterior aspect. No deformities, swelling, erythema noted on exam. Neurovascularly intact. Range of motion severely limited by pain. Psych Appearance: grossly normal Mental Status: mental status grossly normal <Shree Oglesby DO - Last Filed: 10/20/21 18:59> Initial Vital Signs Initial Vital Signs: Vital Signs Temperature 98.5 F 10/20/21 11:00 Pulse Rate 118 H 10/20/21 11:00 Respiratory Rate 24 10/20/21 11:00 Blood Pressure 194/114 H 10/20/21 11:00 Pulse Oximetry 97 10/20/21 11:00 Course <Lavern Burgess PA-C - Last Filed: 10/20/21 18:33> Orders Ordered: ED Orders 10/20/21 11:05 XR shoulder LT min 2V Stat 10/20/21 13:22 MR shoulder LT wo con Stat Discontinued Medications Cyclobenzaprine HCl (Cyclobenzaprine 10 Mg Tablet) 10 mg PO NOW ONE Stop: 10/20/21 12:25 Last Admin: 10/20/21 12:45 Dose: 10 mg Documented by: ARISTIDES Ketorolac Tromethamine (Ketorolac 30 Mg/Ml Vial) 15 mg IM NOW ONE Stop: 10/20/21 12:25 Last Admin: 10/20/21 13:53 Dose: Not Given Documented by: ARISTIDES Ketorolac Tromethamine (Ketorolac 30 Mg/Ml Vial) 15 mg IM NOW ONE Stop: 10/20/21 12:43 Last Admin: 10/20/21 12:45 Dose: 15 mg Documented by: ARISTIDES Vital Signs Vital signs: Vital Signs - 8 hr 10/20/21 11:00 Temperature 98.5 F Pulse Rate 118 H Respiratory Rate 24 Blood Pressure 194/114 H Pulse Oximetry 97 <Shree Oglesby DO - Last Filed: 10/20/21 18:59> Orders Ordered: ED Orders 10/20/21 11:05 XR shoulder LT min 2V Stat 10/20/21 13:22 MR shoulder LT wo con Stat Discontinued Medications Cyclobenzaprine HCl (Cyclobenzaprine 10 Mg Tablet) 10 mg PO NOW ONE Stop: 10/20/21 12:25 Last Admin: 10/20/21 12:45 Dose: 10 mg Documented by: ARISTIDES Ketorolac Tromethamine (Ketorolac 30 Mg/Ml Vial) 15 mg IM NOW ONE Stop: 10/20/21 12:25 Last Admin: 10/20/21 13:53 Dose: Not Given Documented by: ARISTIDES Ketorolac Tromethamine (Ketorolac 30 Mg/Ml Vial) 15 mg IM NOW ONE Stop: 10/20/21 12:43 Last Admin: 10/20/21 12:45 Dose: 15 mg Documented by: ARISTIDES Vital Signs Vital signs: Vital Signs - 8 hr 10/20/21 11:00 Temperature 98.5 F Pulse Rate 118 H Respiratory Rate 24 Blood Pressure 194/114 H Pulse Oximetry 97 MDM - Extremity (Nontraumatic) <Lavern Burgess PA-C - Last Filed: 10/20/21 18:33> Imaging Data Shoulder x-ray: Radiologist's Impression: PROCEDURE:? XR SHOULDER LT MIN 2V ? INDICATIONS:? pain ? TECHNIQUE:? 2 views of the shoulder were acquired.? ? COMPARISON:? None. ? FINDINGS:? ? Bones:? No fractures or dislocations.? There is minimal acromioclavicular joint degeneration.? No suspicious bony lesions.? Visualized ribs appear intact.? ? Soft tissues:? There are indistinct calcifications along the rectal course of the distal superior cuff. ? IMPRESSION:? ? 1. No fracture or dislocation. ? 2. Indistinct calcifications along the expected course of the superior cuff distally suggestive of calcific tendinitis. ? ? Dictated by: Korey Macdonald M.D. on 10/20/2021 at 11:56 ? ? Approved by: Korey Macdonald M.D. on 10/20/2021 at 11:59 ? Shoulder MRI: Radiologist's Impression: PROCEDURE:? MR SHOULDER LT WO CON ? INDICATIONS:? LEFT Sholder pain ? TECHNIQUE:? Noncontrast oblique coronal T2 fast spin echo with fat saturation, oblique sagittal T1 spin echo and T2 fast spin echo with fat saturation, axial T1 spin echo and T2 fast spin echo with fat saturation through the shoulder.? ? COMPARISON:? [facility], CR, XR SHOULDER LT MIN 2V, 10/20/2021, 11:17. ? FINDINGS:? Image quality:? Excellent.? ? Rotator cuff:? Tendinosis and low-grade articular and bursal surface partial thickness tear involving distal supraspinatus at its insertion on the humeral head is seen extending to musculotendinous junction.? Small calcification is seen within anterior fibers of distal supraspinatus tendon at its insertion on the humeral head is seen suggestive of calcific tendinitis.? Distal infraspinatus is intact.? Tendinosis and low to moderate grade partial-thickness tear involving mid to inferior fibers of distal subscapularis is seen extending to musculotendinous junction.? No full-thickness rotator cuff tendon rupture.? Sagittal images demonstrate mild supraspinatus muscle atrophy.? ? Bones and bursae:? No bone marrow contusions or fractures.? Mild to moderate acromioclavicular joint osteoarthritic changes are seen.? Mild glenohumeral joint osteoarthritic changes also noted.? The acromion demonstrates conventional anatomy, without an os acromiale.? Moderate amount of subcoracoid bursal fluid is seen.? Small to moderate amount of subacromial subdeltoid bursal fluid is also noted. ? Capsule and soft tissues:? Subtle signal abnormality and contour irregularity involving superior anterior labrum at 12 to 1 o'clock position is seen.? The long head of the biceps tendon demonstrates normal location and morphology.? The rotator interval appears normal, without fibrosis.? The coracohumeral ligament is normal in thickness.? ? ? IMPRESSION:? 1. No acute fracture or dislocation.? Mild to moderate acromioclavicular joint and glenohumeral joint osteoarthritis.? Small to moderate amount of subacromial subdeltoid bursal fluid than subcoracoid bursal fluid. 2. Tendinosis and low-grade articular and bursal surface partial thickness tear involving distal supraspinatus extending to musculotendinous junction.? Suggestion of calcific tendinitis involving anterior fibers of distal supraspinatus with small calcification.? Tendinosis and low to moderate grade partial-thickness tear involving mid to inferior fibers of distal subscapularis extending to musculotendinous junction.? No full- thickness rotator cuff tendon rupture.? Very mild supraspinatus muscle atrophy. 3. Finding is suggestive of subtle superior anterior labral tear at 12 to 1 o'clock position. ? ? ? Dictated by: Lee Champagne M.D. on 10/20/2021 at 15:51 ? ? Approved by: Lee Champagne M.D. on 10/20/2021 at 16:05 ? [facility] Narrative Medical decision making narrative: 45-year-old female with a history of lumbar disc herniation presents to the ED with 2 days of left-sided shoulder pain. Concern for fracture/dislocation versus rotator cuff tear versus shoulder sprain/strain. Will order x-rays, treat pain, re-evaluate. X-ray negative for acute findings. Patient's pain somewhat improved with Toradol, Flexeril. Range of motion still limited. Will obtain MRI. Will reassess. MRI shows incomplete rotator cuff tear, along with a subtle labral tear. Discussed findings with patient. Patient was fitted in a sling. Patient agrees to follow up with Ortho within a week. Patient's pain was well controlled in the ED. ED return precautions discussed with patient and patient verbalized understanding. Discharge Plan Departure Patient Disposition: Home Clinical Impression: Left rotator cuff tear Instructions: DI for Rotator Cuff Injury Activity Restrictions/Additional Instructions: You were evaluated in the ED today for a left shoulder injury. Your MRI showed a partial-thickness tear of the rotator cuff, and a small labral tear, which is the likely cause of your symptoms. You have been fitted with a sling. You may continue to take ibuprofen or Tylenol for the pain. Please follow-up with [facility] at [phone] within a week for further treatment. Return to the ED if you experience any numbness, weakness or worsening symptoms. Prescriptions: No Action buspirone 30 mg tablet 30 mg PO BID 0RF Label Comments: take 1 tablet by mouth twice a day paroxetine HCl 30 mg tablet PO 0RF lorazepam 0.5 mg tablet 0.5 mg PO BID PRN (Reason: agitation) 0RF oxycodone 5 mg tablet 5 mg PO DAILY PRN (Reason: pain) 0RF gabapentin 800 mg tablet 800 mg PO TID 0RF albuterol sulfate 90 mcg/actuation aerosol powdr breath activated 2 inh inhalation Q4-6H PRN0RF celecoxib [Celebrex] 200 mg capsule 200 mg PO DAILY Qty: 30 2RF diazepam [Valium] 10 mg tablet 10 mg PO .COMPLEX MDD 3 tabs PRN (Reason: 1-2 prior to MRI and for possible steroid flare) Qty: 10 0RF Rx Instructions: 10 mg PO PRN; Referrals: Tushar Real MD [Primary Care Provider] - <Shree Oglesby DO - Last Filed: 10/20/21 18:59> Cosign ED Attending Cosignature Attestation: Dr Oglesby Co-Sign Statement: I was available for consultation during this patient's emergency department visit. This chart is signed by myself for administrative purposes only. I did not have direct contact with this patient during this visit. They were seen independently by the APC.
== END 2021-10-20 17:05 | disposition home or self-care (01) ==
PROVIDERS: Emergency Provider Student in an Organized Health Care Education/Training Program; PCP Family Medicine
DX: S46.012A Strain of muscle(s) and tendon(s) of the rotator cuff of left shoulder, initial encounter (principal); F17.210 Nicotine dependence, cigarettes, uncomplicated; X58.XXXA Exposure to other specified factors, initial encounter
CPT/HCPCS: 73030; 73221; 96372; 99284; J1885

== ENCOUNTER 2021-10-22 10:07 | Outpatient (CLI) | payer OTHER, SELFPAY ==
[2021-10-22] VITALS (8 sets, daily range): BP systolic 147–166; BP diastolic 92–109; PULSE 82–96; RESP 12–20; TEMP 36.6; O2SAT 95–100
--- NOTE | 2021-10-22 10:14 | DI.RAD.S_ITS ---
PROCEDURE: PAIN L/S TRANSFORAMINAL INJECT INDICATIONS: SPONDYLOSIS COMPARISON: None. FINDINGS: Fluoroscopic spot filming was performed to verify placement of spinal needles at the right L4-L5 neural foramen level(s), as labeled on the films. Appropriate extra thecal location(s) of the needle tip(s) was confirmed by injection of iodinated contrast. IMPRESSION: Access needle at the right L4-L5 neural foramen for transforaminal epidural steroid injection. Dictated by: Macie Weaver MD, PhD on 10/22/2021 at 13:23 Approved by: Macie Weaver MD, PhD on 10/22/2021 at 13:24
[2021-10-22] MEDS: BUPIVACAINE 0.25% (PF) VIAL 2 ML INJ (10:50)
[2021-10-22] MEDS: IOPAMIDOL 15 ML VIAL 3 ML INJ (10:50)
[2021-10-22] MEDS: BETAMETHASONE 30 MG/5 ML MDV 6 MG INJ (10:51)
[2021-10-22] MEDS: DEXAMETHASONE 10 MG/ML VIAL 20 MG INJ (10:51)
[2021-10-22] MEDS: MIDAZOLAM 2 MG/2 ML VIAL ×2 (10:52)
--- NOTE | 2021-10-22 10:57 | P.PCN_ITS ---
Date/Time/Diagnoses Date of procedure: 10/22/21 Time of procedure: 10:57 Pre-procedure diagnosis: 1. FORAMINAL STENOSIS WITH LE SYMPTOMS Post-procedure diagnosis: same Procedure Notes Procedure: 1. FLUOROSCOPICALLY GUIDED CONTRAST CONTROLLED TRANSFORAMINAL EPIDURAL STEROID INJECTION - RIGHT L4/5 TFESI Indications: Dino is referred by Dr. Bautista for treatment of Foraminal Stenosis with Right LE Symptoms Physician: Kaleb Villagomez Total Fluoroscopy time (seconds): 7 Total sedation minutes: 10 Complications: none Procedure in detail & Post-procedure care: FINDINGS Foraminal Nerve Root Compression secondary to disc disease and facet hypertrophy DESCRIPTION OF PROCEDURE Following review of allergy and review of potential side effects and complications, including, but not necessarily limited to, infection, allergic reaction, local tissue breakdown, stroke, temporary or permanent nerve injury, paralysis, and possible , the patient indicated that the patient understood and agreed to proceed. An informed consent document was signed by the patient, witnessed by a nurse, and placed in the patient's chart. Additionally, other treatment options including medications, modalities, and physical therapy were reviewed with the patient. After review of previous anaesthesic history and IV conscious sedation the patient was deemed safe to proceed with today?s procedure with IV conscious sedation as ASA class II designation. Safety time-out was performed to confirm patient ID, procedure to be performed and site of procedure. IV sedation was accomplished with a combination of 4mg of Versed was administered by the RN after DO order, titrated to patient comfort during the course of the procedure while the patient remained responsive to all verbal commands In the prone position following sterile prep and drape of the lumbar region, the right L4/5 posterior neuroforamen was identified fluoroscopically. The skin was anesthetized via a 25-gauge 1.5-inch needle with 1% lidocaine solution. At this point, a 25-gauge 3.5-inch spinal needle was atraumatically introduced and advanced under fluoroscopic guidance through the posterior right L4/5 neuroforamen to approximately the anterior aspect of the canal. Depth was confirmed on lateral view. Following negative aspiration, injection of approximately 1.5cc of Isovue 200 under live fluoroscopy in the AP view confirmed excellent flow along the nerve root, into the epidural space without vascular or intrathecal uptake observed Radiological data, including multiple fluoroscopic views of the lumbosacral s pine, reveal a spinal needle at the right L4/5 posterior neuroforamen. Subsequent views show flow of contrast material flowing superiorly and inferiorly along the nerve root confirming epidural flow. Subsequently, a test dose of 1.5 cc of 1% lidocaine solution was administered and patient was observed for two minutes for signs or symptoms of complications, including abdominal pain, shortness of breath, bilateral upper or lower extremity weakness, nausea and vomiting, prior to steroid injection. At this point, a total of 3cc or 20mg of dexamethasone and 6mg of betamethasone was injected without incident. The procedure tolerated the procedure well without signs or symptoms of complications prior to transfer to the recovery area continued monitoring without incident. The patient was then transferred to the recovery area where they were observed for an appropriate time after the injection. The patient reported a VAS score of 7 prior to the procedure and a post- procedure VAS of 0. POST OP INSTRUCTIONS The patient was provided a Pain Log to continue to record their response to the target-specific procedure prior to follow-up visit with their referring physician. Additionally, specific post-injection care instructions and a contact number to our office were provided if concerns arise regarding possible complications associated with the procedure are suspected.
== END 2021-10-22 11:15 | disposition home or self-care (01) ==
LOC: RAD 10:13
PROVIDERS: PCP Family Medicine; Referring Provider Physical Medicine & Rehabilitation; Visit Provider Physical Medicine & Rehabilitation
DX: M48.061 Spinal stenosis, lumbar region without neurogenic claudication (principal); M51.16 Intervertebral disc disorders with radiculopathy, lumbar region
CPT/HCPCS: 64483; 99152; J0702; J1100; J2250

== ENCOUNTER 2022-03-18 08:23 | Outpatient (CLI) | payer OTHER, SELFPAY ==
[2022-03-18] VITALS (9 sets, daily range): BP systolic 136–160; BP diastolic 83–113; PULSE 63–80; RESP 12–22; TEMP 35.9; O2SAT 98–100
--- NOTE | 2022-03-18 08:27 | DI.RAD.S_ITS ---
PROCEDURE: PAIN L/SI FACET INJ/BLK 1STL INDICATIONS: SPONDYLOSIS COMPARISON: [facility], , PAIN L/S TRANSFORAMINAL INJECT, 10/22/2021, 10:48. FINDINGS: Fluoroscopic spot filming was performed to verify placement of spinal needles on the right at the L3, L4, and L5 levels, as labeled on the films. Appropriate location of the needle tips was confirmed by injection of iodinated contrast. IMPRESSION: Intraprocedural examination demonstrating appropriate positions of the needles. Dictated by: Ricci Murray M.D. on 03/18/2022 at 10:36 Approved by: Ricci Murray M.D. on 03/18/2022 at 10:37
[2022-03-18 09:19] LABS: COVID19 -Nasal RAPID Negative (Negative)
[2022-03-18] MEDS: MIDAZOLAM 2 MG/2 ML VIAL 4 MG IV (10:22)
[2022-03-18] MEDS: BUPIVACAINE 0.5% (PF) VIAL 2 ML INJ (10:28)
[2022-03-18] MEDS: IOPAMIDOL 15 ML VIAL 3 ML INJ (10:28)
[2022-03-18] MEDS: LIDOCAINE 1% 20 ML INJ (10:29)
--- NOTE | 2022-03-18 10:39 | PM.PROC.IR.1 ---
Date/Time/Diagnoses Date of procedure: 03/18/22 Time of procedure: 10:39 Pre-procedure diagnosis: FACET ARTHROPATHY Post-procedure diagnosis: same Procedure Notes Procedure: 1. RIGHT L3, L4 AND L5 DIAGNOSTIC MB BLOCKS Indications: Dino is referred by Dr. Real for treatment of Right Axial LBP. Physician: Kaleb Villagomez Total Fluoroscopy time (seconds): 7 Total sedation minutes: 14 Complications: none Procedure in detail & Post-procedure care: DESCRIPTION OF PROCEDURE Fluoroscopically guided, contrast-controlled right L3, L4 AND L5 medial branch blocks with 0.5cc of 0.5% Marcaine. Following review of allergy and review of potential side effects and complications, including, but not necessarily limited to, infection, allergic reaction, local tissue breakdown, nerve injury, paralysis, stroke and possible , the patient indicated that the patient understood and agreed to proceed. An informed consent document was signed by the patient, witnessed by a nurse, and placed in the patient's chart. After review of previous anaesthesic history and IV conscious sedation the patient was deemed safe to proceed with today's procedure with IV conscious sedation as ASA class II designation. Safety time-out was performed to confirm patient ID, procedure to be performed and site of procedure. IV sedation was accomplished with a combination of 4mg of Versed was administered by the RN after DO order, titrated to patient comfort during the course of the procedure while the patient remained responsive to all verbal commands In the prone position, following sterile prep and drape of the lumbar region, the right L3, L4 AND L5 anatomical location of the medial branch of the dorsal ramus was identified fluoroscopically. Subsequently an anesthetic skin wheal using 1% lidocaine solution was initiated at each of the anatomical spots. Subsequently then a 22-gauge 3.5-inch spinal needle was atraumatically introduced and advanced under fluoroscopic guidance at each of the corresponding sites at the right L3, L4 and L5 MB. After negative aspiration, 0.2cc of Isovue 200 was injected, confirming placement without vascular or intrathecal uptake. Subsequently then 0.5cc of 0.5% Marcaine solution was injected at each of the corresponding sites at the right L3, L4 and L5 medial branch locations. The patient tolerated the procedure well without signs or symptoms of complications. The patient tolerated the procedure well without signs or symptoms of complications prior to transfer to the recovery area continued monitoring without incident. Post-procedure, the patient was monitored initiating provocative activities to measure the amount of relief from block of the facetogenic pain. The patient reported a VAS of 7 prior to the procedure and a post-procedure VAS of 1. It has been a pleasure to assist in the diagnostic and therapeutic care of your patient. POST OP INSTRUCTIONS The patient was provided with a Pain Log to complete over the next several hours and subsequent days prior to the patient's follow up with the ordering physician. If the patient has finish production manager relief to the solution applied, then they may be a candidate for medial branch rhizotomy. The patient is aware, was provided, once again, with a Pain Log and will follow up with the referring physician for review and clinical correlation
== END 2022-03-18 11:00 | disposition home or self-care (01) ==
LOC: RAD 08:25
PROVIDERS: PCP Family Medicine; Referring Provider Physical Medicine & Rehabilitation; Visit Provider Physical Medicine & Rehabilitation
DX: M47.816 Spondylosis without myelopathy or radiculopathy, lumbar region (principal); Z20.822 Contact with and (suspected) exposure to COVID-19
CPT/HCPCS: 64493; 64494; 87635; J2250

== ENCOUNTER 2022-07-06 13:21 | Outpatient (CLI) | payer OTHER, SELFPAY ==
[2022-07-06] VITALS (9 sets, daily range): BP systolic 141–155; BP diastolic 98–108; PULSE 68–91; RESP 15–21; TEMP 36.4; O2SAT 95–99
--- NOTE | 2022-07-06 13:22 | DI.RAD.S_ITS ---
PROCEDURE: PAIN L/SI FACET INJ/BLK 1STL INDICATIONS: SPONDYLOSIS COMPARISON: [facility], , PAIN L/SI FACET INJ/BLK 1STL, 03/18/2022, 10:28. FINDINGS: Fluoroscopic spot filming was performed to verify placement of spinal needles at the right L3, L4 and L5 pedicle level(s), as labeled on the films. Appropriate location(s) of the needle tip(s) was confirmed by injection of iodinated contrast. IMPRESSION: Access needles at the right L3, L4 and L5 pedicle levels for L3, L4 and L5 medial branch block. Dictated by: Macie Weaver MD, PhD on 07/06/2022 at 15:36 Approved by: Macie Weaver MD, PhD on 07/06/2022 at 15:37
[2022-07-06] MEDS: MIDAZOLAM 2 MG/2 ML VIAL 4 MG IV (14:56)
[2022-07-06] MEDS: IOPAMIDOL 15 ML VIAL 3 ML INJ (14:58)
[2022-07-06] MEDS: LIDOCAINE 2% INJ SDV 1 ML INJ (14:59)
--- NOTE | 2022-07-06 15:09 | P.PCN_ITS ---
Date/Time/Diagnoses Date of procedure: 07/06/22 Time of procedure: 15:09 Pre-procedure diagnosis: 1. FACET ARTHROPATHY Post-procedure diagnosis: same Procedure Notes Procedure: 1. RIGHT L3, L4 AND L5 DIAGNOSTIC MB BLOCKS Indications: Dino is referred by Dr. Real for treatment of Right Axial LBP. Physician: Kaleb Villagomez Total Fluoroscopy time (seconds): 6 Total sedation minutes: 12 Complications: none Procedure in detail & Post-procedure care: DESCRIPTION OF PROCEDURE Fluoroscopically guided, contrast-controlled right L3, L4 and L5 medial branch blocks with 0.5cc of 2% Lidocaine. Following review of allergy and review of potential side effects and complications, including, but not necessarily limited to, infection, allergic reaction, local tissue breakdown, nerve injury, paralysis, stroke and possible , the patient indicated that the patient understood and agreed to proceed. An informed consent document was signed by the patient, witnessed by a nurse, and placed in the patient's chart. After review of previous anaesthesic history and IV conscious sedation the patient was deemed safe to proceed with today's procedure with IV conscious sedation as ASA class II designation. Safety time-out was performed to confirm patient ID, procedure to be performed and site of procedure. IV sedation was accomplished with a combination of 4mg of Versed was administered by the RN after DO order, titrated to patient comfort during the course of the procedure while the patient remained responsive to all verbal commands In the prone position, following sterile prep and drape of the lumbar region, the right L3, L4 and L5 anatomical location of the medial branch of the dorsal ramus was identified fluoroscopically. Subsequently an anesthetic skin wheal using 1% lidocaine solution was initiated at each of the anatomical spots. Subsequently then a 22-gauge 3.5-inch spinal needle was atraumatically introduced and advanced under fluoroscopic guidance at each of the corresponding sites at the right L3, L4 and L5 MB. After negative aspiration, 0.2cc of Isovue 200 was injected, confirming placement without vascular or intrathecal uptake. Subsequently then 0.5cc of 2% Lidocaine solution was injected at each of the corresponding sites at the right L3, L4 and L5 medial branch locations. The patient tolerated the procedure well without signs or symptoms of complications. The patient tolerated the procedure well without signs or symptoms of complications prior to transfer to the recovery area continued monitoring without incident. Post-procedure, the patient was monitored initiating provocative activities to measure the amount of relief from block of the facetogenic pain. The patient reported a VAS of 7 prior to the procedure and a post-procedure VAS of 1. It has been a pleasure to assist in the diagnostic and therapeutic care of your patient. POST OP INSTRUCTIONS The patient was provided with a Pain Log to complete over the next several hours and subsequent days prior to the patient's follow up with the ordering physician. If the patient has maintenance groundman relief to the solution applied, then they may be a candidate for medial branch rhizotomy. The patient is aware, was provided, once again, with a Pain Log and will follow up with the referring physician for review and clinical correlation
== END 2022-07-06 15:39 | disposition home or self-care (01) ==
LOC: RAD 13:22
PROVIDERS: PCP Family Medicine; Referring Provider Physical Medicine & Rehabilitation; Visit Provider Physical Medicine & Rehabilitation
DX: M47.816 Spondylosis without myelopathy or radiculopathy, lumbar region (principal)
CPT/HCPCS: 64493; 64494; 99152; J2250

== ENCOUNTER → 2023-04-13 11:04 | Outpatient (CLI) | payer OTHER, SELFPAY ==
--- NOTE | 2023-04-13 11:06 | DI.RAD.S_ITS ---
PROCEDURE: XR LUMBAR SPINE MIN 4V INDICATIONS: Right-sided axial low back pain right lower extremity sympto TECHNIQUE: 5 views of the lumbar spine were acquired, including bilateral oblique views. COMPARISON: None. FINDINGS: Bones: 5 nonrib-bearing vertebrae are present. Slight leftward curvature of the lumbar spine. No listhesis. Mild disc height loss at L3-4, L4-5 and L5-S1. Soft tissues: Overlying bowel gas pattern is normal. No suspicious soft tissue calcifications. Cholecystectomy clips. Oblique images: No pars defects. IMPRESSION: Mild lower lumbar degenerative disc disease. Dictated by: Acosta Licona M.D. on 04/13/2023 at 14:44 Approved by: Acosta Licona M.D. on 04/13/2023 at 14:45
== END ==
PROVIDERS: PCP Family Medicine; Referring Provider Physical Medicine & Rehabilitation; Visit Provider Physical Medicine & Rehabilitation
DX: M47.816 Spondylosis without myelopathy or radiculopathy, lumbar region (principal); M51.36 Other intervertebral disc degeneration, lumbar region
CPT/HCPCS: 72110

== ENCOUNTER → 2023-11-02 09:12 | Outpatient (CLI) | payer OTHER, SELFPAY ==
--- NOTE | 2023-11-02 09:13 | DI.MRI.S_ITS ---
PROCEDURE: MR LUMBAR SPINE WO CON INDICATIONS: Compare with the previous, lumbar radiculopathy TECHNIQUE: Noncontrast sagittal T1 spin echo and T2 fast echo, sagittal STIR, and T2 fast spin echo through the lumbar spine. In cases with scoliosis, additional coronal T2 fast spin echo may be performed. COMPARISON: Outside Facility, , MRI L-SPINE W/O CONTRAST, 08/25/2020, 11:15. FINDINGS: Image quality: Excellent. Alignment and Curvature: There is normal bony alignment. Bone Marrow: Marrow is of normal overall signal. No acute vertebral body compression fractures. Spinal Cord: Conus medullaris terminates at the L1-L2 level. Visualized cord demonstrates normal signal and size. Paraspinous Soft Tissues: No paravertebral masses. T12-L1: Normal appearance. L1-L2: No central canal or neural foraminal stenosis. L2-L3: Facet arthropathy and mild thickening of ligamentum flavum. No central canal or neural foraminal stenosis. L3-L4: Disc desiccation height loss. Minimal disc bulge. Facet arthropathy and thickening of ligamentum flavum. Epidural lipomatosis. Mild central canal stenosis. No significant neural foraminal stenosis. L4-L5: Disc desiccation height loss. Mild diffuse disc bulge with posterior annular tearing. Facet arthropathy and thickening of ligamentum flavum. No significant central canal stenosis. No significant neural foraminal stenosis. L5-S1: Mild central disc protrusion is stable. Facet arthropathy. No significant central canal or neural foraminal stenosis. IMPRESSION: 1. Mild degenerative changes of the lumbar spine which are overall similar in appearance compared to prior. 2. There is mild central stenosis at L3-L4. Otherwise, the central canal is patent. 3. No significant neural foraminal stenosis. Dictated by: Julio Cesar Cates M.D. on 11/02/2023 at 10:38 Approved by: Julio Cesar Cates M.D. on 11/02/2023 at 10:44
== END ==
LOC: MRI 09:13
PROVIDERS: PCP Family Medicine; Referring Provider Physical Medicine & Rehabilitation; Visit Provider Physical Medicine & Rehabilitation
DX: M47.26 Other spondylosis with radiculopathy, lumbar region (principal); M47.27 Other spondylosis with radiculopathy, lumbosacral region; M21.379 Foot drop, unspecified foot; M51.46 Schmorl's nodes, lumbar region; M48.061 Spinal stenosis, lumbar region without neurogenic claudication
CPT/HCPCS: 72148

== ENCOUNTER 2023-12-13 09:57 | Outpatient (CLI) | payer OTHER, SELFPAY ==
[2023-12-13] VITALS (10 sets, daily range): BP systolic 151–187; BP diastolic 97–123; PULSE 66–79; RESP 11–18; TEMP 36.2; O2SAT 98–100
--- NOTE | 2023-12-13 11:15 | DI.RAD.S_ITS ---
PROCEDURE: PAIN L/S MED/LAT N RFA INDICATIONS: Right L3-L4 L5 medial branch RFA COMPARISON: None. FINDINGS: Fluoroscopic spot filming was performed to verify placement of spinal needles at the L3-L4 L5 level(s), as labeled on the films. Appropriate location(s) of the needle tip(s) was confirmed by injection of iodinated contrast. IMPRESSION: Intraoperative guidance for L3, L4, L5 injections. Dictated by: Veto Hurt M.D. on 12/13/2023 at 15:46 Approved by: Veto Hurt M.D. on 12/13/2023 at 15:46
[2023-12-13] MEDS: MIDAZOLAM 2 MG/2 ML VIAL 1 MG IV ×2 (11:45→11:53)
[2023-12-13] MEDS: fentaNYL 100 MCG/2 ML INJ 25 MCG IV ×2 (11:45→11:53)
--- NOTE | 2023-12-13 11:47 | PC.NURSE ---
grounding pad placed on left calf
[2023-12-13] MEDS: LIDOCAINE 1% 20 ML 5 ML INJ (11:48)
[2023-12-13] MEDS: BUPIVACAINE 0.5% (PF) 10 ML VIAL 5 ML INJ (11:48)
--- NOTE | 2023-12-13 12:11 | P.PCN_ITS ---
Date/Time/Diagnoses Date of procedure: 12/13/23 Time of procedure: 12:11 Pre-procedure diagnosis: 1. RECALCITRANT FACET ARTHROPATHY Post-procedure diagnosis: same Procedure Notes Procedure: 1. RIGHT L3, L4 AND L5 MEDIAL BRANCH RADIOFREQUENCY NEUROTOMY Indications: Dino is referred by Dr. Real for treatment of facet arthropathy. Physician: Kaleb Villagomez Total Fluoroscopy time (seconds): 13 Total sedation minutes: 21 Complications: none Procedure in detail & Post-procedure care: DESCRIPTION OF PROCEDURE Right L3,L4, and L5 medial branch radio-frequency neurotomy The patient is well known to this clinic having undergone previous facet injections with good but temporary relief. The patient has experienced appropriate, concordant relief with previous facet and median branch blocks but the patient's pain has been recalcitrant to further conservative measures. Therefore, based upon the patient's relief and persistent symptoms, the patient is considered an appropriate candidate for facet rhizotomy. All of the patient's questions regarding the risks versus benefits of the procedure, including, but not limited to, bleeding, infection, temporary as well as lasting nerve injury, paralysis, stroke, and , as well treatment alternatives were answered to satisfaction. After obtaining informed consent, denial of pertinent drug allergies, as well as being made aware of the potential risks of bleeding, infection, spinal cord trauma, paralysis, temporary and permanent nerve damage, seizure, stroke, and possible , the patient was brought to the fluoroscopy suite and positioned prone on the fluoroscopy table. The lumbar region was prepped with Betadine and covered with a fenestrated drape in the usual sterile fashion. Appropriate monitors applied including pulse oximeter, pulse, and blood pressure for regular monitoring throughout the procedure. After review of previous anaesthesic history and IV conscious sedation the patient was deemed safe to proceed with today?s procedure with IV conscious sedation as ASA class II designation. Safety time-out was performed to confirm patient ID, procedure to be performed and site of procedure. IV sedation was accomplished with a combination of 2mg of Versed and 50mcg of Fentanyl administered by the RN after DO order, titrated to patient comfort during the course of the procedure while the patient remained responsive to all verbal commands. After local infiltration using 1% lidocaine, under fluoroscopic guidance, a 10- cm RF insulated needle with a 10-mm active tip was positioned parallel to the junction of the right the superior articulating process where the L3 medial branch resides. Needle placement was confirmed with sensory stimulation at 50 Hz, with motor stimulation of .5v on the right which produced local stimulation without radicular component. The stimulation was then increased to 2v with, once again, only local multifidus stimulation without radicular component. This was then followed by two discreet lesions performed at 80 degrees Celsius for 90 seconds each. The needle was then removed and the identical procedure was performed along the length of the right L4 medial branch with motor stimulation at .7v on the right. The identical procedure was once again performed along the length of the right L5 and medial branch with motor stimulation of .5v on the right. The patient tolerated the procedure well without signs or symptoms of complications prior to transfer to the recovery area continued monitoring without incident. The patient was then transferred to the recovery area where they were observed for an appropriate period of time after the injection. The patient reported a VAS score of 8 prior to the procedure and a post-procedure VAS of 1. POST OP INSTRUCTIONS The patient was provided a Pain Log to continue to record the patient's response to the target-specific procedure prior to the patient's follow-up visit with the referring physician. Additionally, specific post-injection care instructions and a contact number to our office were provided if concerns arise regarding possible complications associated with the procedure are suspected.
== END 2023-12-13 12:25 | disposition home or self-care (01) ==
LOC: RAD 09:57
PROVIDERS: PCP Family Medicine; Referring Provider Physical Medicine & Rehabilitation; Visit Provider Physical Medicine & Rehabilitation
DX: M47.816 Spondylosis without myelopathy or radiculopathy, lumbar region (principal)
CPT/HCPCS: 64635; 64636; 99152; J2250; J3010

== ENCOUNTER 2024-05-29 09:18 | Outpatient (CLI) | payer OTHER, SELFPAY ==
[2024-05-29] VITALS (9 sets, daily range): BP systolic 128–151; BP diastolic 89–105; PULSE 66–87; RESP 16–22; TEMP 36.4; O2SAT 97–100
--- NOTE | 2024-05-29 10:15 | DI.RAD.S_ITS ---
PROCEDURE: PAIN L/S TRANSFORAMINAL INJECT INDICATIONS: RIGHT L4/5 L5/S1 TF KANNAN COMPARISON: [facility], , PAIN L/S TRANSFORAMINAL INJECT, 10/22/2021, 10:48. FINDINGS: Fluoroscopic spot filming was performed to verify placement of spinal needles at the right L4-5 and L5-S1 levels level(s), as labeled on the films. Appropriate location(s) of the needle tip(s) was confirmed by injection of iodinated contrast. IMPRESSION: Fluoro guidance was provided intraoperatively for right L4-5 and L5-S1 TF KANNAN performed by ordering physician. Dictated by: Lee Champagne M.D. on 05/29/2024 at 16:03 Approved by: Lee Champagne M.D. on 05/29/2024 at 16:04
[2024-05-29] MEDS: MIDAZOLAM 2 MG/2 ML VIAL IV (10:48)
[2024-05-29] MEDS: BUPIVACAINE 0.25% (PF) VIAL 2 ML INJ (10:51)
[2024-05-29] MEDS: DEXAMETHASONE 10 MG/ML VIAL 20 MG INJ (10:51)
[2024-05-29] MEDS: iopamidoL 15 ML VIAL 3 ML INJ (10:51)
[2024-05-29] MEDS: BETAMETHASONE 30 MG/5 ML MDV 12 MG INJ (10:51)
--- NOTE | 2024-05-29 11:10 | P.PCN_ITS ---
Date/Time/Diagnoses Date of procedure: 05/29/24 Time of procedure: 11:11 Pre-procedure diagnosis: FORAMINAL STENOSIS WITH LE SYMPTOMS Post-procedure diagnosis: same Procedure Notes Procedure: 1. FLUOROSCOPICALLY GUIDED CONTRAST CONTROLLED TRANSFORAMINAL EPIDURAL STEROID INJECTION - RIGHT L5/S1 TFESI Indications: Dino is referred by Dr. Real for treatment of Foraminal Stenosis with Right LE Symptoms Physician: Kaleb Villagomez Total Fluoroscopy time (seconds): 25 Total sedation minutes: 18 Complications: none Procedure in detail & Post-procedure care: FINDINGS Foraminal Nerve Root Compression secondary to disc disease and facet hypertrophy DESCRIPTION OF PROCEDURE Following review of allergy and review of potential side effects and complications, including, but not necessarily limited to, infection, allergic reaction, local tissue breakdown, stroke, temporary or permanent nerve injury, paralysis, and possible , the patient indicated that the patient understood and agreed to proceed. An informed consent document was signed by the patient, witnessed by a nurse, and placed in the patient's chart. Additionally, other treatment options including medications, modalities, and physical therapy were r eviewed with the patient. After review of previous anaesthesic history and IV conscious sedation the patient was deemed safe to proceed with today?s procedure with IV conscious sedation as ASA class II designation. Safety time-out was performed to confirm patient ID, procedure to be performed and site of procedure. IV sedation was accomplished with a combination of 2mg of Versed was administered by the RN after DO order, titrated to patient comfort during the course of the procedure while the patient remained responsive to all verbal commands In the prone position following sterile prep and drape of the lumbar region, the right L5/S1 posterior neuroforamen was identified fluoroscopically. The skin was anesthetized via a 25-gauge 1.5-inch needle with 1% lidocaine solution. At this point, a 25-gauge 3.5-inch spinal needle was atraumatically introduced and advanced under fluoroscopic guidance through the posterior right L5/S1 neuroforamen to approximately the anterior aspect of the canal. Depth was confirmed on lateral view. Following negative aspiration, injection of approximately 1.5cc of Isovue 200 under live fluoroscopy in the AP view confirmed excellent flow along the nerve root, into the epidural space without vascular or intrathecal uptake observed Radiological data, including multiple fluoroscopic views of the lumbosacral spine, reveal a spinal needle at the right L5/S1 posterior neuroforamen. Subsequent views show flow of contrast material flowing superiorly and inferiorly along the nerve root confirming epidural flow. Subsequently, a test dose of 1.5 cc of 1% lidocaine solution was administered and patient was observed for two minutes for signs or symptoms of complications, including abdominal pain, shortness of breath, bilateral upper or lower ex tremity weakness, nausea and vomiting, prior to steroid injection. At this point, a total of 2cc or 10mg of dexamethasone and 6mg of betamethasone was injected without incident. The procedure tolerated the procedure well without signs or symptoms of complications prior to transfer to the recovery area continued monitoring without incident. The patient was then transferred to the recovery area where they were observed for an appropriate time after the injection. The patient reported a VAS score of 7 prior to the procedure and a post- procedure VAS of 0. POST OP INSTRUCTIONS The patient was provided a Pain Log to continue to record their response to the target-specific procedure prior to follow-up visit with their referring physician. Additionally, specific post-injection care instructions and a contact number to our office were provided if concerns arise regarding possible complications associated with the procedure are suspected.
--- NOTE | 2024-05-29 11:12 | P.PCN_ITS ---
Date/Time/Diagnoses Date of procedure: 05/29/24 Time of procedure: 11:12 Pre-procedure diagnosis: 1. FORAMINAL STENOSIS WITH LE SYMPTOMS Post-procedure diagnosis: same Procedure Notes Procedure: 1. FLUOROSCOPICALLY GUIDED CONTRAST CONTROLLED TRANSFORAMINAL EPIDURAL STEROID INJECTION - LEFT L4/5 Indications: Dino is referred by Dr. Real for treatment of Foraminal Stenosis with Left LE Symptoms Physician: Kaleb Villagomez Total Fluoroscopy time (seconds): 25 Total sedation minutes: 18 Complications: none Procedure in detail & Post-procedure care: FINDINGS Foraminal Nerve Root Compression secondary to disc disease and facet hypertrophy DESCRIPTION OF PROCEDURE Following review of allergy and review of potential side effects and complications, including, but not necessarily limited to, infection, allergic reaction, local tissue breakdown, stroke, temporary or permanent nerve injury, paralysis, and possible , the patient indicated that the patient understood and agreed to proceed. An informed consent document was signed by the patient, witnessed by a nurse, and placed in the patient's chart. Additionally, other treatment options including medications, modalities, and physical therapy were reviewed with the patient. After review of previous anaesthesic history and IV conscious sedation the patient was deemed safe to proceed with today?s procedure with IV conscious sedation as ASA class II designation. Safety time-out was performed to confirm patient ID, procedure to be performed and site of procedure. IV sedation was accomplished with a combination of 2mg of Versed administered by the RN after DO order, titrated to patient comfort during the course of the procedure while the patient remained responsive to all verbal commands In the prone position following sterile prep and drape of the lumbar region, the left L4/5 posterior neuroforamen was identified fluoroscopically. The skin was anesthetized via a 25-gauge 1.5-inch needle with 1% lidocaine solution. At this point, a 25-gauge 3.5-inch spinal needle was atraumatically introduced and advanced under fluoroscopic guidance through the posterior left L4/5 neuroforamen to approximately the anterior aspect of the canal. Depth was confirmed on lateral view. Following negative aspiration, injection of approximately 1.5 cc of Isovue 200 under live fluoroscopy in the AP view confirmed excellent flow along the nerve root, into the epidural space without vascular or intrathecal uptake observed Radiological data, including multiple fluoroscopic views of the lumbosacral spine, reveal a spinal needle at the left L4/5 posterior neuroforamen. Subsequent views show flow of contrast material flowing superiorly and inferiorly along the nerve root confirming epidural flow. Subsequently, a test dose of 1.5 cc of 1% lidocaine solution was administered and patient was observed for two minutes for signs or symptoms of complications, including abdominal pain, shortness of breath, bilateral upper or lower extremity weakness, nausea and vomiting, prior to steroid injection. At this point, a total of 2cc or 10mg of dexamethasone and 6mg of betamethasone was injected without incident. The procedure tolerated the procedure well without signs or symptoms of complications prior to transfer to the recovery area continued monitoring without incident. The patient was then transferred to the recovery area where they were observed for an appropriate time after the injection. The patient reported a VAS score of 7 prior to the procedure and a post- procedure VAS of 0. POST OP INSTRUCTIONS The patient was provided a Pain Log to continue to record their response to the target-specific procedure prior to follow-up visit with their referring physician. Additionally, specific post-injection care instructions and a contact number to our office were provided if concerns arise regarding possible complications associated with the procedure are suspected.
--- NOTE | 2024-06-05 09:56 | P.PCN_ITS ---
Date/Time/Diagnoses Date of procedure: 05/29/24 Time of procedure: 11:11 Pre-procedure diagnosis: 1. FORAMINAL STENOSIS WITH LE SYMPTOMS Post-procedure diagnosis: same Procedure Notes Procedure: 1. FLUOROSCOPICALLY GUIDED CONTRAST CONTROLLED TRANSFORAMINAL EPIDURAL STEROID INJECTION - RIGHT L4/5 TFESI Indications: Dino is referred by Dr. Real for treatment of Foraminal Stenosis with Right LE Symptoms Physician: Kaleb Villagomez Total Fluoroscopy time (seconds): 12 Total sedation minutes: 16 Complications: none Procedure in detail & Post-procedure care: FINDINGS Foraminal Nerve Root Compression secondary to disc disease and facet hypertrophy DESCRIPTION OF PROCEDURE Following review of allergy and review of potential side effects and complications, including, but not necessarily limited to, infection, allergic reaction, local tissue breakdown, stroke, temporary or permanent nerve injury, paralysis, and possible , the patient indicated that the patient understood and agreed to proceed. An informed consent document was signed by the patient, witnessed by a nurse, and placed in the patient's chart. Additionally, other treatment options including medications, modalities, and physical therapy were reviewed with the patient. After review of previous anaesthesic history and IV conscious sedation the patient was deemed safe to proceed with today?s procedure with IV conscious sedation as ASA class II designation. Safety time-out was performed to confirm patient ID, procedure to be performed and site of procedure. IV sedation was accomplished with a combination of 2mg of Versed was administered by the RN after DO order, titrated to patient comfort during the course of the procedure while the patient remained responsive to all verbal commands In the prone position following sterile prep and drape of the lumbar region, the right L4/5 posterior neuroforamen was identified fluoroscopically. The skin was anesthetized via a 25-gauge 1.5-inch needle with 1% lidocaine solution. At this point, a 25-gauge 3.5-inch spinal needle was atraumatically introduced and advanced under fluoroscopic guidance through the posterior right L4/5 neuroforamen to approximately the anterior aspect of the canal. Depth was confirmed on lateral view. Following negative aspiration, injection of approximately 1.5cc of Isovue 200 under live fluoroscopy in the AP view confirmed excellent flow along the nerve root, into the epidural space without vascular or intrathecal uptake observed Radiological data, including multiple fluoroscopic views of the lumbosacral spine, reveal a spinal needle at the right L4/5 posterior neuroforamen. Subsequent views show flow of contrast material flowing superiorly and inferiorly along the nerve root confirming epidural flow. Subsequently, a test dose of 1.5 cc of 1% lidocaine solution was administered and patient was observed for two minutes for signs or symptoms of complications, including abdominal pain, shortness of breath, bilateral upper or lower extremity weakness, nausea and vomiting, prior to steroid injection. At this point, a total of 2cc or 10mg of dexamethasone and 6mg of betamethasone was injected without incident. The procedure tolerated the procedure well without signs or symptoms of complications prior to transfer to the recovery area continued monitoring without incident. The patient was then transferred to the recovery area where they were observed for an appropriate time after the injection. The patient reported a VAS score of 7 prior to the procedure and a post- procedure VAS of 0. POST OP INSTRUCTIONS The patient was provided a Pain Log to continue to record their response to the target-specific procedure prior to follow-up visit with their referring physician. Additionally, specific post-injection care instructions and a contact number to our office were provided if concerns arise regarding possible complications associated with the procedure are suspected.
== END 2024-05-29 11:30 | disposition home or self-care (01) ==
LOC: RAD 09:18
PROVIDERS: PCP Family Medicine; Referring Provider Physical Medicine & Rehabilitation; Visit Provider Physical Medicine & Rehabilitation
DX: M48.061 Spinal stenosis, lumbar region without neurogenic claudication (principal); M51.16 Intervertebral disc disorders with radiculopathy, lumbar region; M47.26 Other spondylosis with radiculopathy, lumbar region; M48.07 Spinal stenosis, lumbosacral region; M51.17 Intervertebral disc disorders with radiculopathy, lumbosacral region; M47.27 Other spondylosis with radiculopathy, lumbosacral region
CPT/HCPCS: 64483; 64484; 99152; J0702; J1100; J2250; J3490

== ENCOUNTER 2025-04-02 09:54 | Outpatient (CLI) | payer OTHER, SELFPAY ==
[2025-04-02] VITALS (7 sets, daily range): BP systolic 140–157; BP diastolic 88–101; PULSE 66–90; RESP 12–17; TEMP 36.4; O2SAT 96–99
[2025-04-02] MEDS: MIDAZOLAM 2 MG/2 ML VIAL IV (11:15)
--- NOTE | 2025-04-02 11:28 | P.PCN_ITS ---
Date/Time/Diagnoses Date of procedure: 04/02/25 Time of procedure: 11:28 Pre-procedure diagnosis: 1. FACET ARTHROPATHY Post-procedure diagnosis: same Procedure Notes Procedure: 1. Right L5 and S1 MB BLOCKS LA Indications: The patient is referred by for treatment of Right Axial LBP. Physician: Kaleb Villagomez Total Fluoroscopy time (seconds): 8 Total sedation minutes: 10 Complications: none Procedure in detail & Post-procedure care: DESCRIPTION OF PROCEDURE Fluoroscopically guided, contrast-controlled right L5 and S1 medial branch blocks with 0.5cc of 0.5% Marcaine. Following review of allergy and review of potential side effects and complications, including, but not necessarily limited to, infection, allergic reaction, local tissue breakdown, nerve injury, paralysis, stroke and possible , the patient indicated that the patient understood and agreed to proceed. An informed consent document was signed by the patient, witnessed by a nurse, and placed in the patient's chart. After review of previous anaesthesic history and IV conscious sedation the patient was deemed safe to proceed with today?s procedure with IV conscious sedation as ASA class II designation. Safety time-out was performed to confirm patient ID, procedure to be performed and site of procedure. IV sedation was accomplished with a combination of 2mg of Versed was administered by the RN after DO order, titrated to patient comfort during the course of the procedure while the patient remained responsive to all verbal commands In the prone position, following sterile prep and drape of the lumbar region, the right L5 and S1 anatomical location of the medial branch of the dorsal ramus was identified fluoroscopically. Subsequently an anesthetic skin wheal using 1% lidocaine solution was initiated at each of the anatomical spots. Subsequently then a 22-gauge 3.5-inch spinal needle was atraumatically introduced and advanced under fluoroscopic guidance at each of the corresponding sites at the right L5 and S1 MB. After negative aspiration, 0.2 cc of Isovue 200 was injected, confirming placement without vascular or intrathecal uptake. Subsequently then 0.5cc of 0.5% Marcaine solution was injected at each of the corresponding sites at the right L5 and S1 medial branch locations. The patient tolerated the procedure well without signs or symptoms of complications. The procedure tolerated the procedure well without signs or symptoms of complications prior to transfer to the recovery area continued monitoring without incident. Post-procedure, the patient was monitored initiating provocative activities to measure the amount of relief from block of the facetogenic pain. The patient reported a VAS of 7 prior to the procedure and a post-procedure VAS of 1. It has been a pleasure to assist in the diagnostic and therapeutic care of your patient. POST OP INSTRUCTIONS The patient was provided with a Pain Log to complete over the next several hours and subsequent days prior to the patient's follow up with the ordering physician. If the patient has slab lifting engineer relief to the solution applied, then they may be a candidate for medial branch rhizotomy. The patient is aware, was provided, once again, with a Pain Log and will follow up with the referring physician for review and clinical correlation.
== END 2025-04-02 11:50 | disposition home or self-care (01) ==
LOC: RAD 09:55
PROVIDERS: PCP Family Medicine; Referring Provider Physical Medicine & Rehabilitation; Visit Provider Physical Medicine & Rehabilitation
DX: M47.817 Spondylosis without myelopathy or radiculopathy, lumbosacral region (principal)
CPT/HCPCS: 64493; 99152; J0666; J2250